=== PATIENT | male | born 1975 | race Caucasian/White ===

== ENCOUNTER → 2016-11-05 | Outpatient (CLI) | payer OTHER | LOC: CT 10:28 | DX: J32.9 Chronic sinusitis, unspecified (principal); J34.89 Other specified disorders of nose and nasal sinuses; J34.2 Deviated nasal septum | CPT/HCPCS: 70486 ==

== ENCOUNTER 2021-08-29 14:45 | Emergency (ER) | payer OTHER | END 2021-08-29 17:40 | disposition home or self-care (01) | LOC: ER1 14:45 | DX: U07.1 COVID-19 (principal); F17.200 Nicotine dependence, unspecified, uncomplicated | CPT/HCPCS: 71046; 99283; U0002 ==